=== PATIENT | male | born 1950 | race Caucasian/White ===

== ENCOUNTER 2019-06-05 01:09 | Emergency (ER) | payer MEDICARE, OTHER ==
[2019-06-05 01:36] LABS: ABSOLUTE LYMPHOCYTES (AUTO) 1.1 10^3/uL (0.5-4.7); ABSOLUTE MONOCYTES (AUTO) 0.3 10^3/uL (0.1-1.4); ABSOLUTE NEUT (AUTO) 8.4 10^3/uL (1.7-8.2); BASOPHILS % (AUTO) 0.5 % (0-2); EOSINOPHILS % (AUTO) 0.5 % (0-6); HEMATOCRIT 52.6 % (37.9-51.0); LYMPHOCYTES % (AUTO) 10.7 % (13-45); MEAN CORPUSCULAR HEMOGLOBIN 30.3 pg (27.0-33.4); MEAN CORPUSCULAR HGB CONC 34.3 g/dL (32.0-36.0); MEAN CORPUSCULAR VOLUME 88 fl (80-97); MONOCYTES % (AUTO) 3.2 % (3-13); PLATELET COUNT 227 10^3/uL (150-450); RED BLOOD COUNT 5.96 10^6/uL (4.35-5.55); RED CELL DISTRIBUTION WIDTH 13.5 % (11.5-14.0); SEGMENTED NEUTROPHILS % (AUTO) 85.1 % (42-78); TOTAL CELLS COUNTED % (AUTO) 100 %; WHITE BLOOD COUNT 9.9 10^3/uL (4.0-10.5)
[2019-06-05] MEDS ORDERED: ONDANSETRON HCL INJ/PF 4 MG/2 ML SDV IV ONE (01:56)
[2019-06-05] MEDS ORDERED: NORMAL SALINE 1000 ML 1,000 ML IV ONE (01:56)
[2019-06-05 01:57] LABS: ALBUMIN 4.8 g/dL (3.5-5.0); ALKALINE PHOSPHATASE 85 U/L (38-126); ANION GAP 13 (5-19); ASPARTATE AMINO TRANSFERASE 26 U/L (17-59); BILIRUBIN,DIRECT 0.5 mg/dL (0.0-0.4); BILIRUBIN,TOTAL 1.7 mg/dL (0.2-1.3); BLOOD UREA NITROGEN 19 mg/dL (7-20); CALCIUM 10.2 mg/dL (8.4-10.2); CARBON DIOXIDE 20 mmol/L (22-30); CHLORIDE 107 mmol/L (98-107); GLUCOSE 166 mg/dL (75-110); TOTAL PROTEIN 8.3 g/dL (6.3-8.2)
[2019-06-05 02:11] LABS: APPEARANCE,URINE CLOUDY; BILIRUBIN,URINE NEGATIVE (NEGATIVE); COLOR,URINE AMBER; GLUCOSE, URINE NEGATIVE (NEGATIVE); KETONES,URINE TRACE mg/dL (NEGATIVE); LEUKOCYTE ESTERASE,URINE NEGATIVE (NEGATIVE); NITRITE,URINE NEGATIVE (NEGATIVE); PROTEIN,URINE 30 mg/dL (NEGATIVE); URINE SPECIFIC GRAVITY 1.026
--- NOTE | 2019-06-05 02:56 | ER Document Report ---
ED General - General Chief Complaint: Nausea/Vomiting Stated Complaint: NAUSEA,VOMITTING,DIARRHEA Time Seen by Provider: 06/05/19 01:13 Notes: Patient is a 68-year-old male presents to the emergency department for generalized nausea, vomiting, diarrhea. Patient states he ate "something bad from [employer]." Patient states he has had multiple episodes of emesis denying any blood as well as multiple episodes of diarrhea denying any blood in the last 12 hours. Patient voices initially he had some generalized abdominal pain but since EMS had given him 4 mg of IV Zofran the abdominal pain has subsided. Patient's denying any respiratory distress, chest pain, dysuria, headache. Patient denies any medical problems, denies taking any daily medications, denies any allergies. TRAVEL OUTSIDE OF THE [place] IN LAST 30 DAYS: No - Related Data Allergies/Adverse Reactions: No Known Allergies Allergy (Unverified 09/04/15 15:18) Past Medical History - General Information source: Patient - Social History Smoking Status: Never Smoker Frequency of alcohol use: None Family History: Reviewed & Not Pertinent Patient has suicidal ideation: No Patient has homicidal ideation: No - Immunizations Hx Diphtheria, Pertussis, Tetanus Vaccination: No Review of Systems - Review of Systems Constitutional: denies: Fever EENT: No symptoms reported Cardiovascular: No symptoms reported Respiratory: No symptoms reported Gastrointestinal: See HPI Genitourinary: No symptoms reported Male Genitourinary: No symptoms reported Musculoskeletal: No symptoms reported Skin: No symptoms reported Hematologic/Lymphatic: No symptoms reported Neurological/Psychological: No symptoms reported Physical Exam - Vital signs Vitals: Temp Pulse Resp BP 98.0 F 80 16 146/88 H 06/05/19 01:20 06/05/19 01:20 06/05/19 01:20 06/05/19 01:20 - Notes Notes: GENERAL: Alert, interacts well. No acute distress. HEAD: Normocephalic, atraumatic. EYES: Pupils equal, round, and reactive to light. Extraocular movements intact. ENT: Oral mucosa moist, tongue midline. NECK: Full range of motion. Supple. Trachea midline. LUNGS: Clear to auscultation bilaterally, no wheezes, rales, or rhonchi. No respiratory distress. HEART: Regular rate and rhythm. No murmur ABDOMEN: Soft, non-tender. Non-distended. Bowel sounds present in all 4 quadrants. No McBurney's point tenderness, no Tiwari sign noted. EXTREMITIES: Moves all 4 extremities spontaneously. No edema, normal radial and dorsalis pedis pulses bilaterally. No cyanosis. BACK: no cervical, thoracic, lumbar midline tenderness. No saddle anesthesia, normal distal neurovascular exam. No CVA tenderness noted bilaterally. NEUROLOGICAL: Alert and oriented x3. Normal speech. cranial nerves II through XII grossly intact PSYCH: Normal affect, normal mood. SKIN: Warm, dry, normal turgor. No rashes or lesions noted. Course - Re-evaluation Re-evalutation: 06/05/19 02:52 Laboratory 06/05/19 06/05/19 06/05/19 01:26 01:26 01:35 WBC 9.9 RBC 5.96 H Hgb 18.0 H Hct 52.6 H MCV 88 MCH 30.3 MCHC 34.3 RDW 13.5 Plt Count 227 Lymph % (Auto) 10.7 L [place] % (Auto) 3.2 Eos % (Auto) 0.5 Baso % (Auto) 0.5 Absolute Neuts (auto) 8.4 H Absolute Lymphs (auto) 1.1 Absolute Monos (auto) 0.3 Absolute Eos (auto) 0.0 Absolute Basos (auto) 0.0 Seg Neutrophils % 85.1 H Sodium 139.8 Potassium 4.0 Chloride 107 Carbon Dioxide 20 L Anion Gap 13 BUN 19 Creatinine 0.90 Est GFR ( Amer) > 60 Est GFR (MDRD) Non-Af > 60 Glucose 166 H Calcium 10.2 Total Bilirubin 1.7 H Direct Bilirubin 0.5 H Neonat Total Bilirubin Not Reportable Neonat Direct Bilirubin Not Reportable Neonat Indirect Bili Not Reportable AST 26 ALT 22 Alkaline Phosphatase 85 Total Protein 8.3 H Albumin 4.8 Lipase 27.9 Urine Color ROSAMARIA Urine Appearance CLOUDY Urine pH 5.0 Ur Specific [place] 1.026 Urine Protein 30 H Urine Glucose (UA) NEGATIVE Urine Ketones TRACE H Urine Blood NEGATIVE Urine Nitrite NEGATIVE Urine Bilirubin NEGATIVE Urine Urobilinogen 2.0 H Ur Leukocyte Esterase NEGATIVE Urine WBC (Auto) 2 Urine RBC (Auto) 2 U Hyaline Cast (Auto) 14 Urine Bacteria (Auto) 1+ Squamous Epi Cells Auto 1 Urine Mucus (Auto) MANY Urine Ascorbic Acid NEGATIVE Patient's hemoglobin and hematocrit were concentrated consistent with dehydration. Patient's specific gravity was also elevated at 1.026. Patient was treated with another 4 mg of Zofran in the emergency department as well as fluids. Upon reassessment patient states he no longer feels nauseated and continues without any abdominal pain. Patient voices that he overall feels a lot better. At this time will discharge with return precautions and follow-up recomm endations. Verbal discharge instructions given a the bedside and opportunity for questions given. Medication warnings reviewed. Patient is in agreement with this plan and has verbalized understanding of return precautions and the need for primary care follow-up in the next 24-72 hours. This medical record was dictated with voice recognizing software. There may be grammatical, syntax errors that are unintended. - Vital Signs Vital signs: Temp Pulse Resp BP Pulse Ox 98.0 F 80 16 146/88 H 06/05/19 01:20 06/05/19 01:20 06/05/19 01:20 06/05/19 01:20 - Laboratory Result Diagrams: 06/05/19 01:26 06/05/19 01:26 Laboratory results interpreted by me: 06/05/19 06/05/19 06/05/19 01:26 01:26 01:35 RBC 5.96 H Hgb 18.0 H Hct 52.6 H Lymph % (Auto) 10.7 L Absolute Neuts (auto) 8.4 H Seg Neutrophils % 85.1 H Carbon Dioxide 20 L Glucose 166 H Total Bilirubin 1.7 H Direct Bilirubin 0.5 H Total Protein 8.3 H Urine Protein 30 H Urine Ketones TRACE H Urine Urobilinogen 2.0 H Discharge - Discharge Clinical Impression: Nausea vomiting and diarrhea Condition: Stable Disposition: HOME, SELF-CARE Instructions: Vomiting ([facility]), Intravenous (IV) Fluids ([facility]), Diarrhea, Nonspecific ([facility]), Antinausea Medication ([facility]) Additional Instructions: As we discussed you have been seen and treated in the emergency department for nausea, vomiting, diarrhea. Please use nausea medication as prescribed. Please also stay well-hydrated. Please follow-up with your primary care provider in the next 24 to 48 hours. Return to the emergency room for any further concerns. Prescriptions: Ondansetron [Zofran Odt 4 mg Tablet] 1 - 2 tab PO Q6 PRN #10 tab.rapdis PRN Reason: For Nausea/Vomiting
[2019-06-05 03:36] VITALS: BP 148/81
== END 2019-06-05 03:36 | disposition home or self-care (01) ==
LOC: ER 01:09
DX: R11.2 Nausea with vomiting, unspecified (principal); R19.7 Diarrhea, unspecified
CPT/HCPCS: 99283; 96374; 36415; 83690; 85025; 80053; 81001; J2405; J7030